=== PATIENT | male | born 1975 | race Caucasian/White ===

== ENCOUNTER 2017-06-17 20:20 | Emergency (ER) | payer OTHER ==
[~2017-06-17] VITALS: Ht 188 cm; Wt 95.3 kg
[2017-06-17 20:24] VITALS: BP 149/90
== END 2017-06-17 21:49 | disposition home or self-care (01) ==
LOC: ED 21:43
DX: S63.522A Sprain of radiocarpal joint of left wrist, initial encounter (principal); S50.02XA Contusion of left elbow, initial encounter; W01.0XXA Fall on same level from slipping, tripping and stumbling without subsequent striking against object, initial encounter; Y93.29 Activity, other involving ice and snow; Y92.89 Other specified places as the place of occurrence of the external cause; Y99.8 Other external cause status
CPT/HCPCS: 29260; 99284

== ENCOUNTER 2018-07-18 18:04 | Emergency (ER) | payer OTHER ==
[~2018-07-18] VITALS: Ht 185.4 cm; Wt 95.2 kg
[2018-07-18 18:05] VITALS: BP 178/83
[2018-07-18] MEDS ORDERED: KETOROLAC 30 MG/1 ML IM ONE (18:30)
[2018-07-18] MEDS ORDERED: METHOCARBAMOL 750 MG TABLET PO ONE (18:30)
[2018-07-18] MEDS ORDERED: KETOROLAC 30 MG/1 ML ONE (18:31)
[2018-07-18] MEDS ORDERED: METHOCARBAMOL 750 MG TABLET ONE (18:31)
== END 2018-07-18 19:30 | disposition home or self-care (01) ==
LOC: ED 18:16
DX: S39.012A Strain of muscle, fascia and tendon of lower back, initial encounter (principal); M54.31 Sciatica, right side; X50.0XXA Overexertion from strenuous movement or load, initial encounter; Y93.89 Activity, other specified; Y92.89 Other specified places as the place of occurrence of the external cause; Y99.8 Other external cause status
CPT/HCPCS: 72110; 96372; 99283; J1885; J7512

== ENCOUNTER 2018-11-22 23:53 | Emergency (ER) | payer OTHER ==
[~2018-11-22] VITALS: Ht 188 cm; Wt 100.0 kg
[2018-11-23 02:10] VITALS: BP 136/58
== END 2018-11-23 02:12 | disposition home or self-care (01) ==
LOC: ED 11-23 00:57
DX: G89.29 Other chronic pain (principal); M54.5 Low back pain
CPT/HCPCS: 96372; 99284; J1885

== ENCOUNTER 2018-11-25 14:18 | Emergency (ER) | payer OTHER ==
[~2018-11-25] VITALS: Ht 190.5 cm; Wt 103.0 kg
[2018-11-25 14:32] VITALS: BP 119/72
== END 2018-11-25 15:54 | disposition home or self-care (01) ==
LOC: ED 15:42
DX: S39.012A Strain of muscle, fascia and tendon of lower back, initial encounter (principal); R20.0 Anesthesia of skin; X58.XXXA Exposure to other specified factors, initial encounter; Y93.89 Activity, other specified; Y92.89 Other specified places as the place of occurrence of the external cause; Y99.8 Other external cause status
CPT/HCPCS: 96372; 99283; J1885

== ENCOUNTER 2019-05-12 00:17 | Emergency (ER) | payer OTHER ==
[~2019-05-12] VITALS: Ht 190.5 cm; Wt 95.0 kg
[2019-05-12 00:21] VITALS: BP 133/94
--- NOTE | 2019-05-12 01:16 | NUR ---
RN to bedside, reviewed plan of care with patient. Xray of knee completed, awaiting radiology read. Reviewed possible options for discharge with patient. He declines needs at this time.
== END 2019-05-12 02:08 | disposition home or self-care (01) ==
LOC: ED 01:38
DX: S80.01XA Contusion of right knee, initial encounter (principal); F17.200 Nicotine dependence, unspecified, uncomplicated; W22.8XXA Striking against or struck by other objects, initial encounter; Y93.89 Activity, other specified; Y92.69 Other specified industrial and construction area as the place of occurrence of the external cause; Y99.0 Civilian activity done for income or pay
CPT/HCPCS: 99283

== ENCOUNTER 2020-01-24 17:46 | Emergency (ER) | payer OTHER ==
[~2020-01-24] VITALS: Ht 188 cm; Wt 103.0 kg
[2020-01-24 17:51] VITALS: BP 127/81
--- NOTE | 2020-01-24 18:20 | NUR ---
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
--- NOTE | 2020-01-24 18:30 | NUR ---
SPECIALIST ICU: PT TO ROOM FROM [facility]
--- NOTE | 2020-01-24 19:03 | NUR ---
PT CAME IN CO OF BILAT FLANK PAIN THAT STARTED LAST NIGHT. PT DENIES TRAUMA OR PAINFUL URINATION. LABS DRAWN. UA PROVIDED. PT RESTING IN [facility]
[2020-01-24 19:06] LABS: MICROSCOPIC INDICATED
[2020-01-24 19:12] LABS: BASOPHILS % (AUTO) 1 % (0-1); EOSINOPHILS % (AUTO) 3 % (1-7); LYMPHOCYTES % (AUTO) 33 % (22-44); MEAN CORPUSCULAR HEMOGLOBIN 29.7 pg (27.5-34.5); MEAN CORPUSCULAR HGB CONC 34.5 g/dL (33.2-36.2); MEAN PLATELET VOLUME 8.5 fL (7.4-10.4); MONOCYTES % (AUTO) 9 % (2-9); NEUTROPHILS % (AUTO) 54 % (42-75); PLATELET COUNT 273 x10^3/uL (130-400); RED BLOOD COUNT 5.48 x10^6/uL (4.38-5.82)
[2020-01-24 19:23] LABS: ALANINE AMINOTRANSFERASE 46 U/L (12-78); ALBUMIN 3.6 g/dL (3.4-5.0); ANION GAP 5 mmol/L (5-15); CALCIUM 8.9 mg/dL (8.5-10.1); CHLORIDE 110 mmol/L (98-107); CREATININE 1.09 mg/dL (0.7-1.3)
[2020-01-24 19:25] LABS: ALKALINE PHOSPHATASE 147 U/L (45-117); BILIRUBIN,TOTAL 0.6 mg/dL (0.2-1.0); TOTAL PROTEIN 7.5 g/dL (6.4-8.2)
[2020-01-24 19:26] LABS: MD NO
== END 2020-01-24 21:16 | disposition home or self-care (01) ==
LOC: ED 20:17
DX: M62.830 Muscle spasm of back (principal)
CPT/HCPCS: 36415; 74022; 80053; 81001; 83690; 85025; 87086; 99284